=== PATIENT | female | born 1995 | race Caucasian/White ===

== ENCOUNTER → 2017-01-04 | Emergency (ER) | payer OTHER ==
[~2017-01-04] VITALS: Wt 75.0 kg
[~2017-01-04] MED LIST: ACET500C5 PO; BEN25 PO; CETI10CA PO; HYDR-3498; NITR-58 PO; RANI150T9 PO
--- NOTE | 2017-01-04 13:14 | ERD ---
ER Documentation Chief Complaint Date/Time DATE: 01/04/17 TIME: 13:08 Chief Complaint rash since last night with no distress. no sob. no ob complaints HPI Patient is a 21-year-old female who is who presents to the ED with a rash on her face since this morning. She states that the rash developed on its own and states that it is mildly itchy, not painful. She denies fever or chills. She states that the rash is only located on her face. Denies rashes anywhere else on her body. Denies vomiting, abdominal pain, diarrhea, constipation. Denies drainage. Denies shortness of breath or difficulty breathing, difficulty swallowing or difficulty speaking. Denies chest pain. Denies change in foods or recent travel or hygiene products. Denies new medications. She has no other complaints. She has not tried any medications. ROS All systems reviewed and are negative except as per history of present illness. Medications Home Meds Active Scripts Cetirizine Hcl* (Zyrtec*) 10 Mg Capsule, 10 MG PO DAILY, #30 TAB.CHEW Prov:BG TEMPLETON PA-C 01/04/17 Diphenhydramine Hcl* (Benadryl*) 25 Mg Cap, 25 MG PO Q6, #30 CAP Prov:BG TEMPLETON PA-C 01/04/17 Acetaminophen* (Tylophen*) 500 Mg Capsule, 1 CAP PO Q6H Y for PAIN AND OR ELEVATED TEMP, #20 CAP Prov:VIVIANA MCCARTY PA-C 09/03/16 Nitrofurantoin Monohyd Macrocr* (Macrobid*) 100 Mg Capsr, 100 MG PO BID for 7 Days, CAP Prov:VIVIANA MCCARTY PA-C 09/03/16 Ranitidine Hcl* (Zantac*) 150 Mg Tablet, 150 MG PO BID Y for EPIGASTRIC PAIN, # 20 TAB Prov:VIVIANA MCCARTY PA-C 09/03/16 Reported Medications Hydrocodone Bit-Acetaminophen* ([place]*) 1 Tab Tab 08/03/13 Allergies Allergies: Coded Allergies: No Known Allergy (Unverified , 01/04/17) PMhx/Soc History of Surgery: Yes (s/p ERCP and cholecystectomy on 09-19-13) Anesthesia Reaction: No Hx Neurological Disorder: No Hx Respiratory Disorders: No Hx Cardiac Disorders: No Hx Psychiatric Problems: No Hx Miscellaneous Medical Probl: No (gallstones) Hx Alcohol Use: No Hx Substance Use: No Hx Tobacco Use: No Smoking Status: Never smoker Physical Exam Vitals Vital Signs Date Time Temp Pulse Resp B/P Pulse Ox O2 Delivery O2 Flow Rate FiO2 01/04/17 10:45 98.0 82 21 126/56 100 Physical Exam GENERAL: Well-developed, well-nourished female. Appears in no acute distress. normal speech HEAD: Normocephalic, atraumatic. EYES: Pupils are equally reactive bilaterally. EOMs grossly intact. No conjunctival erythema. ENT: Moist mucous membranes. No uvula deviation. No kissing tonsils. No exudates. no erythema. no tongue swelling or lip swelling. SKIN: erythamous diffuse macular rash on face, no purpura or petechiae, non raised. no drainage, no warmth, no induration or fluctuance. NECK: Supple. No lymphadenopathy or thyromegaly. No meningismus. negative kernig. negative brudinski. LUNG: Clear to auscultation bilaterally. No rhonchi, wheezing, rales or coarse breath sounds. HEART: Regular rate and rhythm. No murmurs, rubs or gallops. SKIN: Normal color. Warm and dry. No rashes or lesions. Capillary refill < 2 seconds Procedures/MDM ER COURSE: I kept the patient and/or family informed of laboratory and diagnostic imaging results throughout the emergency room course. MEDICAL DECISION MAKING: This is a 21 year old female who is who presents to the ED who presents with rash to her face x 1 day. Vital signs were reviewed. Patient is afebrile. Patient is not hypoxic. Patient is not toxic or ill-appearing. Patient has rash of unknown etiology. Low suspicion for necrotizing fasciitis, SJS, toxic epidermal necrolysis, Kawasaki, erythema multiforme, gangrene, scarlet fever, meningococcemia, sepsis, anaphylaxis, sepsis, deep space infection, or foreign body. Low suspicion for cellulitis as it is not warm, no streaking. I have low suspicion for angioedema or anayphalaxis. No angioedema, speaking in full sentences, no shortness of breath, no tongue swelling. DISCHARGE: At this time, patient is stable for discharge and outpatient management with no new complaints during the ER course. Patient was sent home with ani and patrick and to follow up with OB this week.. Patient will be discharged home with instructions to recheck for new or worsening symptoms such as fever, nausea , weakness, LOC and to follow up with primary care in the next 1-2 days. Patient was advised to return to the ER for any new or worsening symptoms. Plan was discussed and patient and/or family understands and agrees. Home instructions were given. Departure Diagnosis: Primary Impression: Rash Condition: Stable Patient Instructions: Self-Care for Skin Rashes Referrals: DENITA MANUEL MD (PCP) Additional Instructions: Call your primary care doctor TOMORROW for an appointment during the next 1-2 days.See the doctor sooner or return here if your condition worsens before your appointment time. BG TEMPLETON PA-C Jan 04, 2017 13:14
[2017-01-04 13:16] VITALS: BP 120/58; PULSE 68; RESP 20; TEMP 98
== END | disposition home or self-care (01) ==
LOC: FTE 10:40
DX: O99.89 Other specified diseases and conditions complicating pregnancy, childbirth and the puerperium (principal); R21 Rash and other nonspecific skin eruption; Z3A.00 Weeks of gestation of pregnancy not specified
CPT/HCPCS: 99283

== ENCOUNTER 2017-03-25 20:18 | Outpatient (CLI) | payer OTHER ==
[~2017-03-25] VITALS: Ht 152.4 cm; Wt 94.6 kg
[2017-03-25 20:29] VITALS: BP 116/70; PULSE 69; RESP 18
[2017-03-25 20:34] VITALS: Ht 152.4 cm; Wt 94.6 kg
[2017-03-25 21:46] LABS: ADD UMIC NO; URINE BILIRUBIN (Dip) NEGATIVE (NEGATIVE); URINE BLOOD (Dip) NEGATIVE (NEGATIVE); URINE COLOR LT. YELLOW (YELLOW); URINE GLUCOSE (Dip) NEGATIVE (NEGATIVE); URINE KETONES (Dip) NEGATIVE (NEGATIVE); URINE LEUKOCYTE ESTERASE (Dip) NEGATIVE (NEGATIVE); URINE NITRITE (Dip) NEGATIVE (NEGATIVE); URINE TOTAL PROTEIN (Dip) NEGATIVE (NEGATIVE); URINE UROBILINOGEN (Dip) 0.2 E.U./dL (0.1-1.0)
[2017-03-26] MEDS ORDERED: TERBUTALINE 1 MG/ML INJ SC ONE ×2 (00:14→01:30)
[2017-03-26] MEDS ORDERED: TERBUTALINE 1 ML ONE (00:19)
--- NOTE | 2017-03-26 02:59 | QN ---
Documentation Comment Laborist Dr Kim's pt 21 y.o. with an IUP at 34w 5d c/o abdominal and back cramping. Pt has a placenta previa. No bleeding. + movement. PMHx: none. PSHx: none. POBHx: 4 years ago. NKDA. T=98.2 BP 116/70 NST: baseline 140 bpm with accels to 160 bpm. No decels. UC's q 2 to 6 minutes then after 2 doses of terbutaline the contractions stopped and the pt reports feeling much better. She also had p.o. hydration. U/A negative. A: IUP at 34w 5d. False labor. P: D/C home. Maintain hydration. Reviewed PTL precautions and previa precautions. BERNICE CASTILLO MD March 26, 2017 02:59
--- NOTE | 2017-03-26 03:15 | TRIAGE ---
OB Triage Datetime Report Generated by CPN: 03/26/2017 03:14 Datetime: 03/26/2017 02:38 Labor Evaluation Frequency: X1 Monitor Mode: External Duration (sec)2399: 70 Quality: Mild Resting Tone [place]: Relaxed Datetime: 03/26/2017 02:30 Labor Evaluation Frequency: x2 Monitor Mode: External Duration (sec)2399: 40-60 Quality: Mild Resting Tone [place]: Relaxed Contraction Comments: Pt states she does not feel any contractions. Pain Presence: None/Denies Pain Type: N/A Datetime: 03/26/2017 02:00 Monitor Mode: Palpation Resting Tone [place]: Relaxed Contraction Comments: No contractions palpated. Pt states she does not feel pain, cramping, or con tractions. Datetime: 03/26/2017 01:30 Labor Evaluation Frequency: 3-8; irregular Monitor Mode: External Duration (sec)2399: 40-60 Quality: Mild Resting Tone [place]: Relaxed Datetime: 03/26/2017 01:11 Pain Presence: None/Denies Pain Type: N/A Datetime: 03/26/2017 00:30 Labor Evaluation Frequency: Irregular; 2-3 Monitor Mode: External Duration (sec)2399: 40-60 Quality: Mild Pattern: Normal: <= 5 Contractions in 10 Minutes Resting Tone [place]: Relaxed Contraction Comments: Terbutaline administered during this period. Datetime: 03/26/2017 00:00 Labor Evaluation Frequency: 2-7 Monitor Mode: External Duration (sec)2399: 40-100 Quality: Mild Pattern: Normal: <= 5 Contractions in 10 Minutes Resting Tone [place]: Relaxed Datetime: 03/25/2017 23:41 Pain Assessment Pain Scale: 5 Pain Presence: Intermittent Pain Type: Cramping; Contraction Pain Location: Abdomen; Back Pain Relief Measures: Comfort Measures Datetime: 03/25/2017 23:25 Labor Evaluation Frequency: 3-6 Monitor Mode: External Duration (sec)2399: 50-70 Quality: Mild Pattern: Normal: <= 5 Contractions in 10 Minutes Resting Tone [place]: Relaxed Datetime: 03/25/2017 23:05 Labor Evaluation Frequency: N/A Monitor Mode: External Resting Tone [place]: Relaxed Contraction Comments: [place] monitoring continued per MD order. Heart Rate FHR Baseline Rate: 135 Monitor Mode: External US FHR Baseline Changes: No Baseline Change Variability: Moderate 6-25 bpm Accelerations: 15X15 Decelerations: None Category: Category I Comments: US D/C'd at this time per MD order. Datetime: 03/25/2017 22:55 Labor Evaluation Frequency: N/A Monitor Mode: External Resting Tone [place]: Relaxed Contraction Comments: UTERINE ACTIVITY/IRRITABILITY NOTED Heart Rate FHR Baseline Rate: 135 Monitor Mode: External US FHR Baseline Changes: No Baseline Change Variability: Moderate 6-25 bpm Accelerations: 15X15 Decelerations: None Category: Category I Datetime: 03/25/2017 21:55 Labor Evaluation Frequency: N/A Monitor Mode: External Resting Tone [place]: Relaxed Contraction Comments: Uterine activity/irritability noted. Heart Rate FHR Baseline Rate: 140 Monitor Mode: External US FHR Baseline Changes: No Baseline Change Variability: Moderate 6-25 bpm Accelerations: 15X15 Decelerations: None Category: Category I Datetime: 03/25/2017 21:45 Pain Assessment Pain Scale: 0 Pain Presence: None/Denies Pain Type: N/A Pain Assessment Comments: Pt reports that she is "not really feeling cramping" at this time. Datetime: 03/25/2017 21:03 Pain Assessment Pain Scale: 3 Pain Presence: Intermittent Pain Type: Cramping Pain Location: Abdomen; Back Pain Assessment Comments: Pt reports that cramping pain is currently 3/10 and states that pain lev el is less than the 6/10 pain earlier. Datetime: 03/25/2017 20:55 Labor Evaluation Frequency: N/A Monitor Mode: External Resting Tone [place]: Relaxed Contraction Comments: Uterine activity noted. Heart Rate FHR Baseline Rate: 145 Monitor Mode: External US FHR Baseline Changes: No Baseline Change Variability: Moderate 6-25 bpm Accelerations: 15X15 Decelerations: None Category: Category I Datetime: 03/25/2017 20:40 EGA: 34.3 Datetime: 03/25/2017 20:20 Stage of : OB Triage Maternal Assessment Level of Consciousness: Fully Conscious DTR's/Clonus: DTRs 2+; No Clonus Headache: Denies Blurred Vision: No Respiratory Effort: Unlabored; Regular Rhythm; Equal Expansion Breath Sounds, Left: Clear and Equal Breath Sounds, Right: Clear and Equal Nausea/Vomiting: Denies RUQ Epigastric Pain: Denies Lower Extremities Edema: None Degree: None Upper Extremities Edema: None Degree: None Facial Edema: None Temperature Route: Oral Fall Risk Assessment History of Falling: (0) No Secondary Diagnosis: (0) No Ambulatory Aid: (0) Bedrest/Nurse Assist IV Therapy: (0) No Gait: (0) Normal/Bedrest/Immobile Mental Status: (0) Oriented to Own Ability Fall Score: 0 Fall Risk Score Definition: No Risk: No action required Monitor Mode: External Monitor Mode: External US Pain Assessment Pain Scale: 6 Pain Presence: Intermittent Pain Type: Cramping Pain Location: Abdomen; Back Datetime: 03/25/2017 20:15 Time of Arrival: 03/25/2017 20:15 Arrived By: Ambulatory Arrived From: Emergency Dept Chief Complaint: PLACENTA PREVIA STOMACH AND BACK CRAMPING Movement: Present Contractions: Irregular Time Contractions Began: 03/25/2017 16:00 Contractions: x5/hr Rupture of Membranes: Denies Vaginal Bleeding: None Vaginal Discharge: Denies Recent Sexual Intercouse: Denies Abdominal Trauma: Not Applicable Patient Complaints: Cramping; Back Pain Time Provider Notified: 03/25/2017 20:15 Provider Notified: MD CASTILLO Initial Plan: OBSERVATION, UA, PO HYDRATION, TERBUTALINE
== END 2017-03-26 02:48 | disposition home or self-care (01) ==
LOC: OBT 20:18 → L-D 20:19 → OBT 03-26 02:48
PROVIDERS: ATTEND Obstetrics & Gynecology
DX: O26.893 Other specified pregnancy related conditions, third trimester (principal); R10.9 Unspecified abdominal pain; M54.9 Dorsalgia, unspecified; Z3A.34 34 weeks gestation of pregnancy
CPT/HCPCS: 81003; 96372; J3105; Z7500; G0463

== ENCOUNTER 2017-04-18 17:09 | Inpatient (IN) | payer OTHER ==
[~2017-04-18] VITALS: Ht 152.4 cm; Wt 98.0 kg
[2017-04-18 17:50] VITALS: BP 121/79; PULSE 77
[2017-04-18] MEDS ORDERED: LIDOCAINE 1% (MPF) 30 ML INJ INJ PRN (19:00)
[2017-04-18] MEDS ORDERED: METHYLERGONOVINE 0.2 MG INJ IM PRN (19:00)
[2017-04-18] MEDS ORDERED: LACTATED RINGER'S 1,000 ML IV PRN (19:00)
[2017-04-18] MEDS ORDERED: AMPICILLIN 2 GM/NS (PMX) 100 ML IV ONE (19:00)
[2017-04-18] MEDS ORDERED: CARBOPROST 250 MCG INJ IM PRN (19:00)
[2017-04-18] MEDS ORDERED: OXYTOCIN 30 UNITS/LR 500 ML IV PRN (19:00)
[2017-04-18] MEDS ORDERED: MISOPROSTOL 200 MCG TAB PR PRN (19:00)
[2017-04-18] MEDS ORDERED: BUTORPHANOL 2 MG INJ IV PRN ×2 (19:00)
[2017-04-18] MEDS ORDERED: OXYTOCIN 30 UNITS/LR 500 ML IV SCH ×3 (19:00)
--- NOTE | 2017-04-18 19:04 | HP ---
Date/Time of Note Date/Time of Note DATE: 04/18/17 TIME: 19:01 OB - History Hx of Present Free Text/Dictation C/O SROM at 1600 PM 04/18/2017 Estimated Due Date: Apr 03, 2017 : 2 Para: 1 Care: Good Care Ultrasounds: Normal mid trimester US Obstetrical Complications: None Medical Complications: None Past Family/Social History * Past Medical, Surgical, Family and Obstetric Histories reviewed from chart. OB Admission Exam Vital Signs Vital Signs Vital Signs Date Time Temp Pulse Resp B/P Pulse Ox O2 Delivery O2 Flow Rate FiO2 04/18/17 17:50 99.1 77 121/79 Physical Exam HEENT: WNL Heart: Rhythm Normal Lungs: Clear, Equal Abdomen: WNL Extremities: Normal Reflexes: Normal Cervical Dilatation: 1cm Effacement: 25% Station: -3 Membranes: Ruptured Amniotic Fluid: Clear Heart Rate: 130's Accelerations: Accelerations Present Decelerations: No Decelerations Varibility: Moderate Contractions on Admission: 6-10 Minutes Apart Date/Time Contractions Began: 04/18/2017 1600 PM Frequency of Contractions: q 5-10 min Duration: >30 seconds Intensity: Mild OB Assessment/Plan Reason for admission: rupture of membranes Other Assessment: 37+ weeks gestation Induction Method: per Pitocin Protocol Other plan: start on ampicillin for GBS prophylaxis DALILA UGALDE MD Apr 18, 2017 19:04
[2017-04-18] MEDS: LACTATED RINGER'S 1,000 ML IV SCH (19:42)
[2017-04-18 20:30] LABS: ADD SCAN DIFF NO
[2017-04-18] MEDS ORDERED: MINERAL OIL LIGHT 10 ML VIAL TOP ONE (20:30)
[2017-04-18 20:33] LABS: BASOPHILS % 0.1 % (0.0-2.0); EOSINOPHILS % 0.5 % (0.0-7.0); HEMATOCRIT 34.5 % (37.0-47.0); HEMOGLOBIN 11.3 g/dl (12.0-16.0); LYMPHOCYTES # 2.4 10^3/ul (0.8-2.9); LYMPHOCYTES % 27.5 % (15.0-51.0); MEAN CORPUSCULAR HEMOGLOBIN 29.6 pg (29.0-33.0); MEAN CORPUSCULAR HGB CONC 32.8 g/dl (32.0-37.0); MEAN CORPUSCULAR VOLUME 90.3 fl (82.0-101.0); MEAN PLATELET VOLUME 10.4 fl (7.4-10.4); MONOCYTE # 0.4 10^3/ul (0.3-0.9); MONOCYTES % 4.7 % (0.0-11.0); NEUTROPHIL # 5.9 10^3/ul (1.6-7.5); NEUTROPHILS % 66.9 % (39.0-77.0); PLATELET COUNT 239 10^3/UL (140-415); RED BLOOD COUNT 3.82 10^6/ul (4.20-5.40); RED CELL DISTRIBUTION WIDTH 14.3 % (11.5-14.5); WHITE BLOOD COUNT 8.9 10^3/ul (4.8-10.8)
[2017-04-18 20:49] LABS: INR 0.91; PROTIME 12.2 Sec (12.2-14.2)
[2017-04-18 20:50] LABS: PARTIAL THROMBOPLASTIN TIME 29.1 Sec (25.0-35.0)
[2017-04-19] MEDS: AMPICILLIN 1 GM/NS (PMX) 50 ML IV SCH ×4 (00:07→12:37)
[2017-04-19] MEDS ORDERED: LACTATED RINGER'S 1,000 ML IV ONE (04:43)
[2017-04-19] MEDS ORDERED: ONDANSETRON 4 MG INJ ONE (04:44)
[2017-04-19] MEDS ORDERED: CITRIC ACID/SODIUM CITRATE 15 ML CUP ONE (04:44)
[2017-04-19] MEDS: LACTATED RINGER'S 1,000 ML IV SCH ×2 (04:47→12:38)
[2017-04-19] MEDS ORDERED: NALOXONE (0.4 MG/ML) INJ IV PRN (05:00)
[2017-04-19] MEDS ORDERED: KETOROLAC 30 MG INJ IV PRN (05:00)
[2017-04-19] MEDS ORDERED: CITRIC ACID/SODIUM CITRATE 15 ML CUP PO ONE (05:00)
[2017-04-19] MEDS ORDERED: FENTAnyl 2MCG/ML-ROPIV 0.2% 100 ML BAG EPI SCH (05:00)
[2017-04-19] MEDS ORDERED: ONDANSETRON 4 MG INJ IV ONE (05:00)
[2017-04-19] MEDS ORDERED: PROCHLORPERAZINE 10 MG INJ IV PRN (05:00)
[2017-04-19] MEDS ORDERED: ONDANSETRON 4 MG INJ IV PRN (05:00)
[2017-04-19] MEDS ORDERED: morphine 2 MG INJ IV PRN ×2 (05:00)
[2017-04-19] MEDS ORDERED: DIPHENHYDRAMINE 50 MG INJ IV PRN (05:00)
--- NOTE | 2017-04-19 13:23 | LDN ---
Date/Time of Note Date/Time of Note DATE: 04/19/17 TIME: 13:20 Delivery Summary of a viable infant over intact perineum Weeks of Gestation 37+ Placenta Delivered: Spontaneously, Intact & Complete Meconium: Particulate Episiotomy: No Perineal laceration: 1 Laceration repair: superficiol perineal laceration was repaired with 2 0 Chromic Anesthesia type: Epidural Estimated blood loss: 300 Sponge & Needle done & correct: Yes All needle counts correct: Yes Any foreign bodies felt in the: No Problems: Delivery Information Sex Infant Sex: female Apgars 1 Minute: 9 5 Minute: 9 Suctioning Nose & mouth suctioned at mi: Yes Delee suction performed: No Umbilical Cord Umbilical cord with: 3 Vessels Cord presentations: no nuchal cord Cord Blood was obtained: No Mother & Baby Disposition Disposition Mom & Baby to Maternity; Good: Yes (mother and baby werre recovered in good condition ) Mom transferred to: Other (maternity ) Baby to NICU: No DALILA UGALDE MD Apr 19, 2017 13:23
[2017-04-19] MEDS ORDERED: ZOLPIDEM 5 MG TAB PO PRN (15:00)
[2017-04-19] MEDS ORDERED: BENZOCAINE 20% 56 ML SPRAY TOP PRN (15:00)
[2017-04-19] MEDS ORDERED: CARBOPROST 250 MCG INJ IM PRN (15:00)
[2017-04-19] MEDS ORDERED: ACETAMINOPHEN/CODEINE #3 TAB PO PRN ×2 (15:00)
[2017-04-19] MEDS ORDERED: MISOPROSTOL 200 MCG TAB PR PRN (15:00)
[2017-04-19] MEDS ORDERED: DIBUCAINE 1% 30 GM OINT PR PRN (15:00)
[2017-04-19] MEDS ORDERED: METHYLERGONOVINE 0.2 MG INJ IM PRN (15:00)
[2017-04-19] MEDS ORDERED: OXYTOCIN 30 UNITS/LR 500 ML IV PRN (15:00)
[2017-04-19] MEDS ORDERED: LANOLIN 7 GM TUBE TOP PRN (15:00)
[2017-04-19] MEDS ORDERED: WITCH HAZEL/GLYCERIN PAD PR PRN (15:00)
[2017-04-19 15:20] VITALS: BP 118/72; PULSE 74
[2017-04-19 16:00] VITALS: BP 117/82; PULSE 76; RESP 18
[2017-04-19] MEDS: IBUPROFEN 600 MG TAB PO SCH ×2 (17:46→23:51)
[2017-04-19] MEDS: CEPHALEXIN 500 MG CAP PO SCH ×2 (17:46→23:51)
[2017-04-19 20:00] VITALS: BP 116/70; PULSE 66; RESP 18
[2017-04-19] MEDS: SENNA/DOCUSATE NA (8.6MG/50MG) TAB PO SCH (20:22)
[2017-04-19] MEDS: MAGNESIUM HYDROXIDE 30ML CUP PO SCH (21:00)
[2017-04-19] MEDS: LACTATED RINGER'S 1,000 ML IV* SCH ×2 (22:52→22:58)
[2017-04-20 00:55] VITALS: BP 103/66; PULSE 54; RESP 16
[2017-04-20 04:21] VITALS: BP 98/68; PULSE 68; RESP 18
[2017-04-20] MEDS: CEPHALEXIN 500 MG CAP PO SCH ×3 (06:07→17:53)
[2017-04-20] MEDS: IBUPROFEN 600 MG TAB PO SCH ×4 (06:07→23:30)
[2017-04-20 07:58] LABS: ADD SCAN DIFF NO
[2017-04-20 08:00] LABS: BASOPHILS % 0.1 % (0.0-2.0); EOSINOPHILS % 0.4 % (0.0-7.0); HEMATOCRIT 33.7 % (37.0-47.0); LYMPHOCYTES # 1.4 10^3/ul (0.8-2.9); LYMPHOCYTES % 18.3 % (15.0-51.0); MEAN CORPUSCULAR HEMOGLOBIN 29.3 pg (29.0-33.0); MEAN CORPUSCULAR HGB CONC 32.6 g/dl (32.0-37.0); MEAN CORPUSCULAR VOLUME 89.6 fl (82.0-101.0); MEAN PLATELET VOLUME 10.2 fl (7.4-10.4); MONOCYTE # 0.3 10^3/ul (0.3-0.9); MONOCYTES % 4.2 % (0.0-11.0); NEUTROPHIL # 5.9 10^3/ul (1.6-7.5); NEUTROPHILS % 76.7 % (39.0-77.0); PLATELET COUNT 202 10^3/UL (140-415); RED BLOOD COUNT 3.76 10^6/ul (4.20-5.40); RED CELL DISTRIBUTION WIDTH 14.5 % (11.5-14.5); WHITE BLOOD COUNT 7.7 10^3/ul (4.8-10.8)
[2017-04-20 08:30] VITALS: BP 108/62; PULSE 62; RESP 18
[2017-04-20] MEDS: MAGNESIUM HYDROXIDE 30ML CUP PO SCH ×2 (09:25→21:23)
[2017-04-20] MEDS: SENNA/DOCUSATE NA (8.6MG/50MG) TAB PO SCH ×2 (09:25→21:23)
[2017-04-20 16:00] VITALS: BP 112/65; PULSE 64; RESP 18
[2017-04-20 19:50] VITALS: PULSE 70; RESP 18
--- NOTE | 2017-04-20 20:32 | DS ---
Date/Time of Note Date/Time of Note home next day DATE: 04/20/17 TIME: 20:29 Obstetrical Discharge Record Final Diagnosis Final Diagnosis: Term delivered Other Final Diagnosis S/P vaginal delivery Vaginal Delivery Obstetrical Delivery: Spontaneous, Laceration, Repaired Complications Augmentation: Yes Condition on Discharge Physical Assessment Last Vitals: see nurses notes Voiding: Yes Bowel Movement: Yes Breast: Soft, non-tender, Filling Fundus: Firm Abdomen and Incision: soft BS + Episiotomy: NA perineum: healing Calf Tenderness: No Patient Condition: Good DALILA UGALDE MD Apr 20, 2017 20:32
--- NOTE | 2017-04-20 20:33 | PD.PPDC ---
USER SUPPORT SPECIALIST Discharge Instruction Provider Information Physician Information 21 y/o female had vaginal delivery Diagnosis Final Diagnosis: S/P vaginal delivery Condition Patient Condition: Good Diet Diet: Resume Regular Diet Activity/Restrictions Activity: Normal Activity May Shower Restrictions: Nothing in the Vagina Return to Work or School: Jun 07, 2017 Follow-up Follow-up with Physician: 4, Week/Weeks Return to clinic for OB Instructions: Breast Tenderness Depression DALILA UGALDE MD Apr 20, 2017 20:33
[2017-04-20] MEDS ORDERED: IBUP-1542 PO (20:34)
[2017-04-21] MEDS: CEPHALEXIN 500 MG CAP PO SCH ×3 (00:04→12:18)
[2017-04-21 04:20] VITALS: BP 116/76; PULSE 74; RESP 18
[2017-04-21] MEDS: IBUPROFEN 600 MG TAB PO SCH ×2 (06:50→12:18)
[2017-04-21 09:00] VITALS: BP 122/78; PULSE 73; RESP 18
[2017-04-21] MEDS: MAGNESIUM HYDROXIDE 30ML CUP PO SCH (09:00)
[2017-04-21] MEDS ORDERED: DIPHTH/TET/ACEL PERTUSS (ADULT) 0.5 ML VIAL IM* ONE (09:00)
[2017-04-21] MEDS ORDERED: MEASLES,MUMPS,RUBELLA VACCINE INJ SC* ONE (09:00)
[2017-04-21] MEDS ORDERED: VARICELLA VACCINE LIVE/PF 1,350 UNIT/0.5 ML ML SC* ONE (09:00)
[2017-04-21] MEDS: SENNA/DOCUSATE NA (8.6MG/50MG) TAB PO SCH (09:17)
== END 2017-04-21 14:45 | disposition home or self-care (01) | DRG 775 ==
LOC: OBT 17:09 → L-D 17:10 → OBT 18:50 → L-D 20:38 → PP1 04-19 14:50
PROVIDERS: ADMIT Obstetrics & Gynecology; ATTEND Obstetrics & Gynecology
PROC: 10E0XZZ Delivery of Products of Conception, External Approach (ICD-10-PCS; principal; 2017-04-19)
PROC: 0HQ9XZZ Repair Perineum Skin, External Approach (ICD-10-PCS; 2017-04-19)
DX: O70.0 First degree perineal laceration during delivery (principal); Z68.41 Body mass index [BMI] 40.0-44.9, adult; O99.214 Obesity complicating childbirth; E66.01 Morbid (severe) obesity due to excess calories; Z3A.37 37 weeks gestation of pregnancy; Z37.0 Single live birth
CPT/HCPCS: 62319; 84112; 85025; 85610; 85730; 86592; 86900; 86901; 87340; 90715; 90716; 99464; G0463; J0290; J2405; J2590; J3010; J7120

== ENCOUNTER 2017-10-02 16:36 | Emergency (ER) | payer OTHER ==
[~2017-10-02] VITALS: Ht 154.9 cm; Wt 94.0 kg
[~2017-10-02 16:36] MED LIST changes: -ACET500C5 PO; -BEN25 PO; -CETI10CA PO; -HYDR-3498; +IBUP-1542 PO; -NITR-58 PO; -RANI150T9 PO
[2017-10-02 16:42] VITALS: Ht 154.9 cm; Wt 94.0 kg
[2017-10-02] MEDS ORDERED: ONDANSETRON (ODT) 4 MG TAB ODT STA (17:11)
[2017-10-02] MEDS ORDERED: ACETAMINOPHEN 500 MG TAB PO STA (17:11)
[2017-10-02] MEDS ORDERED: FAMOTIDINE 20 MG TAB PO ONE (17:30)
[2017-10-02 17:34] LABS: BASOPHILS % 0.2 % (0.0-2.0); EOSINOPHILS # 0.1 10^3/ul (0.0-0.5); EOSINOPHILS % 1.5 % (0.0-7.0); HEMATOCRIT 39.7 % (37.0-47.0); HEMOGLOBIN 13.2 g/dl (12.0-16.0); LYMPHOCYTES # 1.5 10^3/ul (0.8-2.9); LYMPHOCYTES % 22.9 % (15.0-51.0); MEAN CORPUSCULAR HEMOGLOBIN 30.8 pg (29.0-33.0); MEAN CORPUSCULAR HGB CONC 33.2 g/dl (32.0-37.0); MEAN CORPUSCULAR VOLUME 92.5 fl (82.0-101.0); MEAN PLATELET VOLUME 10.4 fl (7.4-10.4); MONOCYTE # 0.3 10^3/ul (0.3-0.9); MONOCYTES % 4.1 % (0.0-11.0); NEUTROPHIL # 4.7 10^3/ul (1.6-7.5); NEUTROPHILS % 71.1 % (39.0-77.0); PLATELET COUNT 278 10^3/UL (140-415); RED BLOOD COUNT 4.29 10^6/ul (4.20-5.40); WHITE BLOOD COUNT 6.6 10^3/ul (4.8-10.8)
[2017-10-02 18:00] LABS: ALBUMIN 4.2 g/dl (3.3-4.9); ALBUMIN/GLOBULIN RATIO 1.5; BILIRUBIN,INDIRECT 0.2 mg/dl (0-1.1); BILIRUBIN,TOTAL 0.2 mg/dl (0.2-1.3); CALCIUM 8.9 mg/dl (8.4-10.2); CREATININE 0.58 mg/dl (0.44-1.00); POTASSIUM 4.1 mmol/L (3.5-5.1)
[2017-10-02] MEDS ORDERED: morphine 4 MG/ML VIAL IV STA (18:02)
--- NOTE | 2017-10-02 18:15 | RADRPT ---
PROCEDURE: US Abdomen. CLINICAL INDICATION: Abdominal Pain TECHNIQUE: Multiple real-time images were acquired of the patient's abdomen and retroperitoneum ut ilizing a high resolution transducer. COMPARISON: None FINDINGS: The liver is of normal size, contour and echogenicity with no mass or intrahepatic ductal dilatation . Common bile duct measures 3 mm in transverse plane. Gallbladder has been removed. Limited visualiz ation of pancreas is normal with no mass or ductal dilatation. There is no ascites. Portal vein is p atent on color flow Doppler imaging. IMPRESSION: Post cholecystectomy. No evidence of biliary obstruction. .Seven Fisher MD, MD Date Time Electronically viewed and signed by .Seven Fisher MD, on 10/02/2017 18:14 .A/
[2017-10-02] MEDS ORDERED: ACET1TAB40 PO (19:51)
[2017-10-02] MEDS ORDERED: PANT40TA3 PO (19:51)
--- NOTE | 2017-10-02 19:54 | ERD ---
ER Documentation Chief Complaint Chief Complaint pt bib family with c/o abd pain starting 1 wk ago, worse since yesterday HPI 21-year-old female presents with approximate one-week history of epigastric pain. Is intermittently sharp. She denies any vomiting. She denies any fevers. Patient believes she had her gallbladder removed but is uncertain. ROS All systems reviewed and are negative except as per history of present illness. Medications Home Meds Active Scripts Acetaminophen with Codeine (Acetaminophen-Cod #3 Tablet) 1 Each Tablet, 1 TAB PO Q6H Y for PAIN, #14 TAB Prov:LULU OSEI MD 10/02/17 Pantoprazole* (Protonix*) 40 Mg Tablet.dr, 40 MG PO DAILY, #15 TAB Prov:LULU OSEI MD 10/02/17 Ibuprofen* (Ibuprofen*) 600 Mg Tablet, 600 MG PO Q6, #30 TAB 0 Refills Prov:DALILA UGALDE MD 04/20/17 Allergies Allergies: Coded Allergies: No Known Allergy (Unverified , 03/25/17) PMhx/Soc History of Surgery: Yes (s/p ERCP and cholecystectomy on 09-19-13) Anesthesia Reaction: No Hx Neurological Disorder: No Hx Respiratory Disorders: No Hx Cardiac Disorders: No Hx Psychiatric Problems: No Hx Miscellaneous Medical Probl: No (gallstones) Hx Alcohol Use: No Hx Substance Use: No Hx Tobacco Use: No Smoking Status: Never smoker Physical Exam Vitals Vital Signs Date Time Temp Pulse Resp B/P Pulse Ox O2 Delivery O2 Flow Rate FiO2 10/02/17 16:42 98.6 68 16 144/88 100 Physical Exam Const: [] Alert, [id number]. Head: Atraumatic Eyes: Normal Conjunctiva ENT: Normal External Ears, Nose and Mouth. Neck: Full range of motion..~ No meningismus. Resp: Clear to auscultation bilaterally Cardio: Regular rate and rhythm, no murmurs Abd: Soft, tenderness in the epigastric area. No tenderness at McBurney's point no Monroy sign., non distended. Normal bowel sounds Skin: No petechiae or rashes Back: No midline or flank tenderness Ext: No cyanosis, or edema Neur: Awake and alert Psych: Normal Mood and Affect Result Diagram: 10/02/17 1725 10/02/17 1725 Results 24 hrs Laboratory Tests Test 10/02/17 17:25 White Blood Count 6.610^3/ul Red Blood Count 4.2910^6/ul Hemoglobin 13.2g/dl Hematocrit 39.7% Mean Corpuscular Volume 92.5fl Mean Corpuscular Hemoglobin 30.8pg Mean Corpuscular Hemoglobin Concent 33.2g/dl Red Cell Distribution Width 13.0% Platelet Count 68239^3/UL Mean Platelet Volume 10.4fl Neutrophils % 71.1% Lymphocytes % 22.9% Monocytes % 4.1% Eosinophils % 1.5% Basophils % 0.2% Nucleated Red Blood Cells % 0.0/100WBC Neutrophils # 4.710^3/ul Lymphocytes # 1.510^3/ul Monocytes # 0.310^3/ul Eosinophils # 0.110^3/ul Basophils # 0.010^3/ul Nucleated Red Blood Cells # 0.010^3/ul Sodium Level 139mmol/L Potassium Level 4.1mmol/L Chloride Level 103mmol/L Carbon Dioxide Level 26mmol/L Anion Gap 14 Blood Urea Nitrogen 12mg/dl Creatinine 0.58mg/dl Glucose Level 87mg/dl Calcium Level 8.9mg/dl Total Bilirubin 0.2mg/dl Direct Bilirubin 0.00mg/dl Indirect Bilirubin 0.2mg/dl Aspartate Amino Transf (AST/SGOT) 36IU/L Alanine Aminotransferase (ALT/SGPT) 51IU/L Alkaline Phosphatase 95IU/L Total Protein 7.0g/dl Albumin 4.2g/dl Globulin 2.80g/dl Albumin/Globulin Ratio 1.50 Lipase 110U/L Current Medications Medications (Trade) Dose Ordered Sig/Corina Route PRN Reason Start Time Stop Time Status Last Admin Dose Admin Ondansetron HCl (Zofran Odt) 8 mg ONCE STAT ODT 10/02/17 17:11 10/02/17 17:12 DC 10/02/17 17:25 Acetaminophen (Tylenol Tab) 500 mg ONCE STAT PO 10/02/17 17:11 10/02/17 17:12 DC 10/02/17 17:25 Famotidine (Pepcid) 20 mg ONCE ONCE PO 10/02/17 17:30 10/02/17 17:31 DC 10/02/17 17:25 Morphine Sulfate (morphine) 4 mg ONCE STAT IV 10/02/17 18:02 10/02/17 18:03 DC 10/02/17 18:14 Procedures/MDM CBC and CMP and lipase normal. CT is negative. Right upper quadrant ultrasound shows normal postoperative cholecystectomy changes without acute findings. Chest X-ray 1V Interpreted by me: Soft Tissue: No acute abnormalities Bones: No acute abnormalities Mediastinum/Cardiac Silhouette/Lungs: [No acute abnormalities] depression- normal 1 view chest x-ray Was given morphine 4 mg IV after pain patient given Pepcid 20 mg by mouth as well. Patient presents with epigastric pain for last week without findings of choledocholithiasis, not aortic disease or cardiopulmonary disease. Signs to suggest appendicitis, no signs to suggest UTI, pneumonia, additional emergent causes of presenting complaints. Patient felt better after observation treatment. She will be treated with Protonix and Tylenol 3, return precautions and primary care follow-up. The patient was stable with no new complaints during the ER course. Clinically, there is no current evidence to suggest meningitis, sepsis, acute abdomen, pneumonia, acute coronary syndrome, pulmonary embolism, or any other emergent condition appearing to require further evaluation or hospitalization. The patient should certainly return for any new or worsening symptoms per the aftercare instructions. They should otherwise follow-up with her primary care doctor for reevaluation this week. Departure Diagnosis: Primary Impression: Abdominal pain Abdominal location: epigastric Qualified Code: R10.13 - Epigastric pain Condition: Stable Patient Instructions: Abdominal Pain, Gastritis (Adult) Additional Instructions: Examinations normal today. May be gastritis. We will treat for this. Recheck for new or worsening symptoms or primary care doctor. LULU OSEI MD Oct 02, 2017 19:53
[2017-10-02 20:03] VITALS: BP 116/80; PULSE 66; RESP 16; TEMP 98.3
--- NOTE | 2017-10-02 20:58 | RADRPT ---
PROCEDURE: XR Chest. CLINICAL INDICATION: Abdominal pain TECHNIQUE: Frontal chest x-ray was obtained. COMPARISON: Chest x-ray September 25, 2013 FINDINGS: The heart is not enlarged. Mediastinum is not widened. No hilar masses seen. Lungs are clear of any infiltrate or mass. There is no effusion or pneumothorax . IMPRESSION: No evidence for active cardiopulmonary disease. .Seven Fisher MD, MD Date Time Electronically viewed and signed by .Seven Fisher MD, on 10/02/2017 20:58 .A/
== END 2017-10-02 20:04 | disposition home or self-care (01) ==
LOC: FTE 16:36
DX: R10.13 Epigastric pain (principal)
CPT/HCPCS: 36415; 71010; 76705; 80053; 83690; 85025; 96374; J2270; Z7502; Z7610

== ENCOUNTER 2018-07-23 21:06 | Emergency (ER) | END 2018-07-23 23:52 | disposition home or self-care (01) ==